=== PATIENT | male | born 1940 | race Caucasian/White ===

== ENCOUNTER 2017-01-13 07:57 | Outpatient (RCR) | payer MEDICARE, OTHER | END 2017-01-30 13:01 | LOC: OPPGERO 07:57 | DX: F32.9 Major depressive disorder, single episode, unspecified (principal) ==

== ENCOUNTER 2017-01-31 09:00 | Outpatient (RCR) | payer MEDICARE, OTHER | END 2017-02-28 15:37 | LOC: OPPGERO 09:00 | DX: F32.9 Major depressive disorder, single episode, unspecified (principal) ==

== ENCOUNTER → 2017-02-17 | Outpatient (CLI) | payer MEDICARE, OTHER | LOC: RAD 08:23 | DX: N18.9 Chronic kidney disease, unspecified (principal); Z90.5 Acquired absence of kidney ==

== ENCOUNTER → 2017-02-28 | Outpatient (CLI) | payer MEDICARE, OTHER | LOC: RAD 11:40 | DX: M77.31 Calcaneal spur, right foot (principal); I10 Essential (primary) hypertension; M48.02 Spinal stenosis, cervical region ==

== ENCOUNTER 2017-03-04 09:00 | Outpatient (RCR) | payer MEDICARE, OTHER | END 2017-04-02 15:27 | disposition still patient (30) | LOC: OPPGERO 09:00 | DX: F32.9 Major depressive disorder, single episode, unspecified (principal) ==

== ENCOUNTER → 2017-03-14 | Outpatient (CLI) | payer MEDICARE, OTHER ==
[2017-03-14 10:10] LABS: BASO # 0.1 (0.02-0.10); EOS # 0.3 (0.04-0.40); HEMATOCRIT 45.2 % (42.0-52.0); HEMOGLOBIN 14.4 g/dL (13.5-18.0); LYMPH# 2.3 (1.50-4.00); MEAN CELL VOLUME 96 fl (78-100); MEAN CORPUSCULAR HEMOGLOBIN 31 pg (27-31); MEAN CORPUSCULAR HGB CONC 32 g/dL (33-37); MEAN PLATELET VOLUME 9.2 fl (7.4-10.4); MONO # 0.6 (0.20-0.80); NEU # 6.7 (1.40-6.50); PLATELET COUNT 273 K/mm3 (130-400); RED BLOOD COUNT 4.71 M/mm3 (4.20-5.60); RED CELL DISTRIBUTION WIDTH 13.6 % (11.5-14.5); WHITE BLOOD COUNT 9.9 K/mm3 (4.8-10.8)
[2017-03-14 10:36] LABS: BUN/CREATININE RATIO 11.3 (6.0-26.0); CALCIUM 9.3 mg/dL (8.4-10.2); POTASSIUM 4.4 mmol/L (3.6-5.0)
[2017-03-14 11:06] LABS: URINE APPEARANCE CLEAR; URINE BILIRUBIN NEGATIVE (NEGATIVE); URINE BLOOD NEGATIVE (NEGATIVE); URINE COLOR YELLOW; URINE GLUCOSE NEGATIVE (NEGATIVE); URINE KETONE NEGATIVE (NEGATIVE); URINE LEUKOCYTE ESTERASE NEGATIVE (NEGATIVE); URINE NITRATE NEGATIVE (NEGATIVE); URINE PROTEIN(semi-quant) NEGATIVE (NEGATIVE); URINE UROBILINOGEN NORMAL (NORMAL); URINE WBC 0-1 /hpf (0-3)
== END ==
LOC: LAB 09:42
PROVIDERS: Internal Medicine
DX: N18.9 Chronic kidney disease, unspecified (principal); I15.9 Secondary hypertension, unspecified; C65.1 Malignant neoplasm of right renal pelvis

== ENCOUNTER 2017-04-03 11:10 | Outpatient (RCR) | payer MEDICARE, OTHER | END 2017-04-30 14:20 | LOC: OPPGERO 11:10 | DX: F32.9 Major depressive disorder, single episode, unspecified (principal); F41.1 Generalized anxiety disorder; N18.3 Chronic kidney disease, stage 3 (moderate); Z88.2 Allergy status to sulfonamides; Z98.890 Other specified postprocedural states; Z85.528 Personal history of other malignant neoplasm of kidney; Z90.5 Acquired absence of kidney ==

== ENCOUNTER 2017-05-01 10:30 | Outpatient (RCR) | payer MEDICARE, OTHER | END 2017-05-30 11:21 | LOC: OPPGERO 10:30 | DX: F32.9 Major depressive disorder, single episode, unspecified (principal); F41.1 Generalized anxiety disorder; G31.89 Other specified degenerative diseases of nervous system; Z85.520 Personal history of malignant carcinoid tumor of kidney; Z98.890 Other specified postprocedural states ==

== ENCOUNTER 2017-06-02 09:34 | Outpatient (RCR) | payer MEDICARE, OTHER ==
[2017-06-22] MEDS ORDERED: CLONAZEPAM1 M1 PO (09:46)
[2017-06-22] MEDS ORDERED: FINASTERIDE5 M1 PO (09:46)
[2017-06-22] MEDS ORDERED: AMLODIPINE BESY10 MG PO (09:47)
[2017-06-22] MEDS ORDERED: LAMOTRIGINE150 MG PO (09:48)
[2017-06-22] MEDS ORDERED: DULOXETINE60 MG PO (09:48)
[2017-06-22] MEDS ORDERED: FLUTICASON0.05 MG/Ac NS (09:49)
[2017-06-22] MEDS ORDERED: VITAMIN D31000 I1 PO (09:49)
[2017-06-22] MEDS ORDERED: LEADER MELATONIN5 MG PO (09:50)
[2017-06-22] MEDS ORDERED: BENADRYL ALLERG25 M1 PO (09:51)
== END 2017-06-30 13:17 ==
LOC: OPPGERO 09:34
DX: F32.9 Major depressive disorder, single episode, unspecified (principal); F41.1 Generalized anxiety disorder; N18.3 Chronic kidney disease, stage 3 (moderate); Z85.528 Personal history of other malignant neoplasm of kidney; Z90.5 Acquired absence of kidney; Z88.2 Allergy status to sulfonamides

== ENCOUNTER 2017-06-22 09:37 | Emergency (ER) | payer MEDICARE, OTHER ==
[2017-06-22] MEDS ORDERED: CLONAZEPAM1 M1 PO (09:46)
[2017-06-22] MEDS ORDERED: FINASTERIDE5 M1 PO (09:46)
[2017-06-22] MEDS ORDERED: AMLODIPINE BESY10 MG PO (09:47)
[2017-06-22] MEDS ORDERED: DULOXETINE60 MG PO (09:48)
[2017-06-22] MEDS ORDERED: LAMOTRIGINE150 MG PO (09:48)
[2017-06-22] MEDS ORDERED: VITAMIN D31000 I1 PO (09:49)
[2017-06-22] MEDS ORDERED: FLUTICASON0.05 MG/Ac NS (09:49)
[2017-06-22] MEDS ORDERED: LEADER MELATONIN5 MG PO (09:50)
[2017-06-22] MEDS ORDERED: BENADRYL ALLERG25 M1 PO (09:51)
[2017-06-22 10:14] LABS: BASO # 0.1 (0.02-0.10); EOS # 0.2 (0.04-0.40); HEMATOCRIT 44.6 % (42.0-52.0); HEMOGLOBIN 14.4 g/dL (13.5-18.0); LYMPH# 1.7 (1.50-4.00); MEAN CELL VOLUME 93 fl (78-100); MEAN CORPUSCULAR HEMOGLOBIN 30 pg (27-31); MEAN CORPUSCULAR HGB CONC 32 g/dL (33-37); MONO # 0.5 (0.20-0.80); NEU # 5.1 (1.40-6.50); PLATELET COUNT 240 K/mm3 (130-400); RED BLOOD COUNT 4.78 M/mm3 (4.20-5.60); WHITE BLOOD COUNT 7.7 K/mm3 (4.8-10.8)
[2017-06-22 10:26] LABS: ALBUMIN 4.3 g/dL (3.5-5.0); CALCIUM 9.5 mg/dL (8.4-10.2); TOTAL BILIRUBIN 0.9 mg/dL (0.2-1.3); TOTAL PROTEIN 8.3 g/dL (6.3-8.2)
[2017-06-22 10:28] LABS: URINE APPEARANCE CLEAR; URINE BILIRUBIN NEGATIVE (NEGATIVE); URINE BLOOD NEGATIVE (NEGATIVE); URINE COLOR YELLOW; URINE GLUCOSE NEGATIVE (NEGATIVE); URINE KETONE NEGATIVE (NEGATIVE); URINE LEUKOCYTE ESTERASE NEGATIVE (NEGATIVE); URINE NITRATE NEGATIVE (NEGATIVE); URINE PROTEIN(semi-quant) TRACE mg/dL (NEGATIVE); URINE UROBILINOGEN NORMAL (NORMAL); URINE WBC 0-1 /hpf (0-3)
[2017-06-22 11:50] VITALS: BP 132/64
== END 2017-06-22 12:02 | disposition home or self-care (01) ==
LOC: ED 09:37
PROVIDERS: Family Medicine
DX: I95.1 Orthostatic hypotension (principal); M47.812 Spondylosis without myelopathy or radiculopathy, cervical region; M47.816 Spondylosis without myelopathy or radiculopathy, lumbar region; Z85.528 Personal history of other malignant neoplasm of kidney; Z90.5 Acquired absence of kidney; N28.9 Disorder of kidney and ureter, unspecified; N40.1 Benign prostatic hyperplasia with lower urinary tract symptoms; N13.8 Other obstructive and reflux uropathy; W18.30XA Fall on same level, unspecified, initial encounter; Z91.81 History of falling; Y92.009 Unspecified place in unspecified non-institutional (private) residence as the place of occurrence of the external cause; M25.571 Pain in right ankle and joints of right foot

== ENCOUNTER → 2017-06-25 | Outpatient (CLI) | payer MEDICARE, OTHER ==
[2017-06-22 11:50] VITALS: BP 132/64
[~2017-06-25] MED LIST: AMLODIPINE BESY10 MG PO; BENADRYL ALLERG25 M1 PO; CLONAZEPAM1 M1 PO; DULOXETINE60 MG PO; FINASTERIDE5 M1 PO; FLUTICASON0.05 MG/Ac NS; LAMOTRIGINE150 MG PO; LEADER MELATONIN5 MG PO; VITAMIN D31000 I1 PO
== END ==
LOC: RAD 14:36
DX: G31.1 Senile degeneration of brain, not elsewhere classified (principal); J32.0 Chronic maxillary sinusitis; J32.1 Chronic frontal sinusitis; R53.1 Weakness; Z88.2 Allergy status to sulfonamides; Z88.5 Allergy status to narcotic agent

== ENCOUNTER → 2017-06-30 | Outpatient (CLI) | payer MEDICARE, OTHER ==
[2017-06-22 11:50] VITALS: BP 132/64
== END ==
LOC: RAD 11:56
DX: M48.07 Spinal stenosis, lumbosacral region (principal); R53.1 Weakness; Z88.5 Allergy status to narcotic agent; Z88.2 Allergy status to sulfonamides; Z98.890 Other specified postprocedural states

== ENCOUNTER 2017-07-01 09:09 | Outpatient (RCR) | payer MEDICARE, OTHER | END 2017-07-31 13:44 | LOC: OPPGERO 09:09 | DX: F32.9 Major depressive disorder, single episode, unspecified (principal); F41.1 Generalized anxiety disorder; N18.3 Chronic kidney disease, stage 3 (moderate); Z85.528 Personal history of other malignant neoplasm of kidney; Z90.5 Acquired absence of kidney; Z79.899 Other long term (current) drug therapy ==

== ENCOUNTER → 2017-07-02 | Outpatient (CLI) | payer MEDICARE, OTHER ==
[2017-06-22 11:50] VITALS: BP 132/64
== END ==
LOC: RAD 12:43
DX: R55 Syncope and collapse (principal); M48.02 Spinal stenosis, cervical region; M67.979 Unspecified disorder of synovium and tendon, unspecified ankle and foot; Z88.5 Allergy status to narcotic agent; Z88.2 Allergy status to sulfonamides

== ENCOUNTER → 2017-07-08 | Outpatient (CLI) | payer MEDICARE, OTHER ==
[2017-06-22 11:50] VITALS: BP 132/64
[2017-07-08 09:35] LABS: EOS # 0.2 (0.04-0.40); HEMATOCRIT 40.3 % (42.0-52.0); HEMOGLOBIN 12.5 g/dL (13.5-18.0); LYMPH# 1.3 (1.50-4.00); MEAN CELL VOLUME 94 fl (78-100); MEAN CORPUSCULAR HEMOGLOBIN 29 pg (27-31); MEAN CORPUSCULAR HGB CONC 31 g/dL (33-37); MEAN PLATELET VOLUME 8.8 fl (7.4-10.4); MONO # 0.4 (0.20-0.80); NEU # 3.9 (1.40-6.50); PLATELET COUNT 224 K/mm3 (130-400); RED CELL DISTRIBUTION WIDTH 12.9 % (11.5-14.5); WHITE BLOOD COUNT 5.8 K/mm3 (4.8-10.8)
[2017-07-08 09:52] LABS: BUN/CREATININE RATIO 11.8 (6.0-26.0); CALCIUM 8.9 mg/dL (8.4-10.2); POTASSIUM 4.5 mmol/L (3.6-5.0)
== END ==
LOC: LAB 09:11
PROVIDERS: Internal Medicine
DX: N18.3 Chronic kidney disease, stage 3 (moderate) (principal)

== ENCOUNTER 2017-08-01 10:44 | Outpatient (RCR) | payer MEDICARE, OTHER ==
[2017-08-12] MEDS ORDERED: TYLENOL 325MG325 MG PO (09:58)
[2017-08-12] MEDS ORDERED: OXYCODONE HCL A1 TAB PO (10:11)
[2017-08-12] MEDS ORDERED: PRAMIPEXOLE D0.25 MG PO (10:12)
[2017-08-12] MEDS ORDERED: GOOD NEIGHBOR P1 T33 PO (10:12)
== END 2017-08-29 13:08 ==
LOC: OPPGERO 10:44
DX: F32.9 Major depressive disorder, single episode, unspecified (principal); F41.1 Generalized anxiety disorder; N18.3 Chronic kidney disease, stage 3 (moderate); Z85.528 Personal history of other malignant neoplasm of kidney; Z90.5 Acquired absence of kidney; Z79.899 Other long term (current) drug therapy; Z63.79 Other stressful life events affecting family and household

== ENCOUNTER → 2017-08-12 | Outpatient (CLI) | payer MEDICARE, OTHER ==
[~2017-08-12] VITALS: Ht 177.8 cm; Wt 97.7 kg
[~2017-08-12] MED LIST changes: +GOOD NEIGHBOR P1 T33 PO; +OXYCODONE HCL A1 TAB PO; +PRAMIPEXOLE D0.25 MG PO; +TYLENOL 325MG325 MG PO
[2017-08-12 09:22] VITALS: BP 137/72
[2017-08-12 09:35] VITALS: BP 137/72
[2017-08-12 11:20] VITALS: BP 138/84
[2017-08-12 23:44] LABS: FOLLICLE STIMULATING HORMONE 14.2 mIU/mL (1.0-12.0); LUTENIZING HORMONE 7.3 mIU/mL (0.6-12.1); PROLACTIN 7.3 ng/mL (3.5-19.4); TESTOSTERONE 292 ng/dL (221-716)
== END ==
LOC: LAB 08:59
PROVIDERS: Family Medicine
DX: M48.02 Spinal stenosis, cervical region (principal); E23.6 Other disorders of pituitary gland
CPT/HCPCS: J0834

== ENCOUNTER 2017-09-01 09:49 | Outpatient (RCR) | payer MEDICARE, OTHER ==
[2017-08-12 11:20] VITALS: BP 138/84
== END 2017-09-30 14:20 ==
LOC: OPPGERO 09:49
DX: F32.9 Major depressive disorder, single episode, unspecified (principal); F41.1 Generalized anxiety disorder; Z63.79 Other stressful life events affecting family and household; Z79.899 Other long term (current) drug therapy; Z85.528 Personal history of other malignant neoplasm of kidney; Z90.5 Acquired absence of kidney

== ENCOUNTER → 2017-09-17 | Outpatient (CLI) | payer MEDICARE, OTHER ==
[2017-08-12 11:20] VITALS: BP 138/84
[2017-09-17 18:40] LABS: BUN/CREATININE RATIO 14.8 (6.0-26.0); CALCIUM 8.4 mg/dL (8.4-10.2); POTASSIUM 4.6 mmol/L (3.6-5.0)
== END ==
LOC: LAB 18:05
PROVIDERS: Family Medicine
DX: N18.3 Chronic kidney disease, stage 3 (moderate) (principal); M10.9 Gout, unspecified; I10 Essential (primary) hypertension

== ENCOUNTER → 2017-09-18 | Outpatient (CLI) | payer MEDICARE, OTHER ==
[2017-08-12 11:20] VITALS: BP 138/84
== END ==
LOC: RAD 09:43
DX: M19.071 Primary osteoarthritis, right ankle and foot (principal)

== ENCOUNTER 2017-10-01 09:40 | Outpatient (RCR) | payer MEDICARE, OTHER ==
[2017-08-12 11:20] VITALS: BP 138/84
== END 2017-10-31 13:42 ==
LOC: OPPGERO 09:40
DX: F32.9 Major depressive disorder, single episode, unspecified (principal); F41.1 Generalized anxiety disorder; Z85.528 Personal history of other malignant neoplasm of kidney; Z90.5 Acquired absence of kidney; Z79.899 Other long term (current) drug therapy

== ENCOUNTER 2017-11-04 09:30 | Outpatient (RCR) | payer MEDICARE, OTHER ==
[2017-08-12 11:20] VITALS: BP 138/84
== END 2017-11-28 14:03 ==
LOC: OPPGERO 09:30
DX: F32.9 Major depressive disorder, single episode, unspecified (principal); F41.1 Generalized anxiety disorder; Z79.899 Other long term (current) drug therapy

== ENCOUNTER → 2017-11-04 | Outpatient (CLI) | payer MEDICARE, OTHER ==
[2017-08-12 11:20] VITALS: BP 138/84
[2017-11-04 10:33] LABS: HEMATOCRIT 44.2 % (42.0-52.0); HEMOGLOBIN 13.8 g/dL (13.5-18.0); MEAN PLATELET VOLUME 9.1 fl (7.4-10.4); RED BLOOD COUNT 4.78 M/mm3 (4.20-5.60); RED CELL DISTRIBUTION WIDTH 14.3 % (11.5-14.5); WHITE BLOOD COUNT 6.9 K/mm3 (4.8-10.8)
[2017-11-04 10:57] LABS: CALCIUM 8.6 mg/dL (8.4-10.2); POTASSIUM 4.2 mmol/L (3.6-5.0)
== END ==
LOC: LAB 10:07
PROVIDERS: Internal Medicine
DX: I12.9 Hypertensive chronic kidney disease with stage 1 through stage 4 chronic kidney disease, or unspecified chronic kidney disease (principal); N18.9 Chronic kidney disease, unspecified; E66.8 Other obesity; Z91.81 History of falling

== ENCOUNTER → 2017-11-05 | Outpatient (CLI) | payer MEDICARE, OTHER ==
[2017-08-12 11:20] VITALS: BP 138/84
[2017-11-06 00:10] LABS: CREATININE OTHER SOURCE 43 mg/dL (())
== END ==
LOC: LAB 09:54
PROVIDERS: Family Medicine
DX: I12.9 Hypertensive chronic kidney disease with stage 1 through stage 4 chronic kidney disease, or unspecified chronic kidney disease (principal); N18.9 Chronic kidney disease, unspecified; E66.8 Other obesity; Z91.81 History of falling

== ENCOUNTER 2017-12-01 09:40 | Outpatient (RCR) | payer MEDICARE, OTHER ==
[2017-08-12 11:20] VITALS: BP 138/84
== END 2017-12-31 14:19 ==
LOC: OPPGERO 09:40
DX: F32.9 Major depressive disorder, single episode, unspecified (principal); F41.1 Generalized anxiety disorder; N18.3 Chronic kidney disease, stage 3 (moderate); Z85.528 Personal history of other malignant neoplasm of kidney; Z90.5 Acquired absence of kidney; Z98.890 Other specified postprocedural states; Z79.899 Other long term (current) drug therapy

== ENCOUNTER 2018-01-01 10:01 | Outpatient (RCR) | payer MEDICARE, OTHER ==
[2017-08-12 11:20] VITALS: BP 138/84
== END 2018-01-30 15:19 ==
LOC: OPPGERO 10:01
DX: F32.9 Major depressive disorder, single episode, unspecified (principal); F41.1 Generalized anxiety disorder; Z63.79 Other stressful life events affecting family and household; M53.80 Other specified dorsopathies, site unspecified; N18.3 Chronic kidney disease, stage 3 (moderate); Z85.528 Personal history of other malignant neoplasm of kidney; Z90.5 Acquired absence of kidney; Z98.890 Other specified postprocedural states; Z79.899 Other long term (current) drug therapy

== ENCOUNTER 2018-02-02 09:10 | Outpatient (RCR) | payer MEDICARE, OTHER ==
[2017-08-12 11:20] VITALS: BP 138/84
== END 2018-03-02 12:39 ==
LOC: OPPGERO 09:10
DX: F32.9 Major depressive disorder, single episode, unspecified (principal); F41.1 Generalized anxiety disorder; N18.3 Chronic kidney disease, stage 3 (moderate); Z60.0 Problems of adjustment to life-cycle transitions; M53.80 Other specified dorsopathies, site unspecified; Z98.890 Other specified postprocedural states; Z85.528 Personal history of other malignant neoplasm of kidney; Z90.5 Acquired absence of kidney; Z79.899 Other long term (current) drug therapy

== ENCOUNTER 2018-03-04 10:09 | Outpatient (RCR) | payer MEDICARE, OTHER ==
[2017-08-12 11:20] VITALS: BP 138/84
== END 2018-04-02 13:35 ==
LOC: OPPGERO 10:09
DX: F32.9 Major depressive disorder, single episode, unspecified (principal); F41.1 Generalized anxiety disorder; N18.3 Chronic kidney disease, stage 3 (moderate); M53.9 Dorsopathy, unspecified; Z85.528 Personal history of other malignant neoplasm of kidney; Z90.5 Acquired absence of kidney; Z79.899 Other long term (current) drug therapy

== ENCOUNTER → 2018-03-05 | Outpatient (CLI) | payer MEDICARE, OTHER ==
[2017-08-12 11:20] VITALS: BP 138/84
[2018-03-05 10:03] LABS: EOS # 0.3 (0.04-0.40); EOS % 3.9 % (0.0-4.0); HEMATOCRIT 42.8 % (42.0-52.0); HEMOGLOBIN 13.8 g/dL (13.5-18.0); LYMPH# 1.6 (1.50-4.00); MEAN CELL VOLUME 94 fl (78-100); MEAN CORPUSCULAR HEMOGLOBIN 30 pg (27-31); MEAN CORPUSCULAR HGB CONC 32 g/dL (33-37); MEAN PLATELET VOLUME 8.9 fl (7.4-10.4); MONO # 0.5 (0.20-0.80); NEU # 4.5 (1.40-6.50); PLATELET COUNT 209 K/mm3 (130-400); RED BLOOD COUNT 4.54 M/mm3 (4.20-5.60); RED CELL DISTRIBUTION WIDTH 13.9 % (11.5-14.5); WHITE BLOOD COUNT 6.9 K/mm3 (4.8-10.8)
[2018-03-05 10:14] LABS: CALCIUM 9.2 mg/dL (8.4-10.2); POTASSIUM 4.1 mmol/L (3.6-5.0)
== END ==
LOC: LAB 09:03
PROVIDERS: Internal Medicine
DX: I12.9 Hypertensive chronic kidney disease with stage 1 through stage 4 chronic kidney disease, or unspecified chronic kidney disease (principal); N18.3 Chronic kidney disease, stage 3 (moderate); N25.81 Secondary hyperparathyroidism of renal origin

== ENCOUNTER → 2018-03-18 | Outpatient (CLI) | payer MEDICARE, OTHER ==
[2017-08-12 11:20] VITALS: BP 138/84
[2018-03-18 13:07] LABS: EOS # 0.2 (0.04-0.40); EOS % 2.8 % (0.0-4.0); HEMATOCRIT 40.9 % (42.0-52.0); MEAN CELL VOLUME 96 fl (78-100); MEAN CORPUSCULAR HEMOGLOBIN 31 pg (27-31); MEAN CORPUSCULAR HGB CONC 32 g/dL (33-37); MEAN PLATELET VOLUME 8.8 fl (7.4-10.4); MONO # 0.8 (0.20-0.80); NEU # 5.1 (1.40-6.50); PLATELET COUNT 178 K/mm3 (130-400); RED BLOOD COUNT 4.26 M/mm3 (4.20-5.60); WHITE BLOOD COUNT 8.2 K/mm3 (4.8-10.8)
== END ==
LOC: LAB 12:55 → RAD 12:55
PROVIDERS: Family Medicine
DX: J40 Bronchitis, not specified as acute or chronic (principal)

== ENCOUNTER 2018-04-03 09:06 | Outpatient (RCR) | payer MEDICARE, OTHER ==
[2017-08-12 11:20] VITALS: BP 138/84
== END 2018-04-30 13:47 ==
LOC: OPPGERO 09:06
DX: F32.9 Major depressive disorder, single episode, unspecified (principal); F41.1 Generalized anxiety disorder; M53.9 Dorsopathy, unspecified; N18.3 Chronic kidney disease, stage 3 (moderate); Z85.528 Personal history of other malignant neoplasm of kidney; Z90.5 Acquired absence of kidney; Z60.0 Problems of adjustment to life-cycle transitions; Z79.899 Other long term (current) drug therapy

== ENCOUNTER 2018-05-01 14:23 | Outpatient (RCR) | payer MEDICARE, OTHER ==
[2017-08-12 11:20] VITALS: BP 138/84
== END 2018-05-29 15:24 ==
LOC: OPPGERO 14:23
DX: F32.9 Major depressive disorder, single episode, unspecified (principal); F41.1 Generalized anxiety disorder; N18.3 Chronic kidney disease, stage 3 (moderate); Z85.528 Personal history of other malignant neoplasm of kidney

== ENCOUNTER → 2018-05-12 | Outpatient (CLI) | payer MEDICARE, OTHER ==
[2017-08-12 11:20] VITALS: BP 138/84
== END ==
LOC: RAD 09:34
DX: G25.81 Restless legs syndrome (principal); M48.02 Spinal stenosis, cervical region; F06.4 Anxiety disorder due to known physiological condition; M46.94 Unspecified inflammatory spondylopathy, thoracic region; M48.04 Spinal stenosis, thoracic region; K80.20 Calculus of gallbladder without cholecystitis without obstruction; M18.11 Unilateral primary osteoarthritis of first carpometacarpal joint, right hand

== ENCOUNTER → 2018-05-18 | Outpatient (CLI) | payer MEDICARE, OTHER ==
[2017-08-12 11:20] VITALS: BP 138/84
== END ==
LOC: RAD 09:39
DX: M47.812 Spondylosis without myelopathy or radiculopathy, cervical region (principal); M48.02 Spinal stenosis, cervical region; Z98.1 Arthrodesis status

== ENCOUNTER 2018-06-01 09:41 | Outpatient (RCR) | payer MEDICARE, OTHER ==
[2017-08-12 11:20] VITALS: BP 138/84
== END 2018-06-30 14:40 ==
LOC: OPPGERO 09:41
DX: F32.9 Major depressive disorder, single episode, unspecified (principal); F41.8 Other specified anxiety disorders; N18.3 Chronic kidney disease, stage 3 (moderate); Z85.528 Personal history of other malignant neoplasm of kidney

== ENCOUNTER 2018-07-01 08:55 | Outpatient (RCR) | payer MEDICARE, OTHER ==
[2017-08-12 11:20] VITALS: BP 138/84
== END 2018-07-31 13:34 ==
LOC: OPPGERO 08:55
DX: F32.9 Major depressive disorder, single episode, unspecified (principal); F41.1 Generalized anxiety disorder; N18.3 Chronic kidney disease, stage 3 (moderate)

== ENCOUNTER → 2018-07-06 | Outpatient (CLI) | payer MEDICARE, OTHER ==
[2017-08-12 11:20] VITALS: BP 138/84
[2018-07-06 17:10] LABS: HEMATOCRIT 39.8 % (42.0-52.0); HEMOGLOBIN 12.3 g/dL (13.5-18.0); MEAN PLATELET VOLUME 9.6 fl (7.4-10.4); RED BLOOD COUNT 4.2 M/mm3 (4.20-5.60); RED CELL DISTRIBUTION WIDTH 13.5 % (11.5-14.5); WHITE BLOOD COUNT 7.4 K/mm3 (4.8-10.8)
[2018-07-06 17:15] LABS: CALCIUM 8.9 mg/dL (8.4-10.2); POTASSIUM 4.6 mmol/L (3.6-5.0)
== END ==
LOC: LAB 14:28
PROVIDERS: Internal Medicine
DX: I12.9 Hypertensive chronic kidney disease with stage 1 through stage 4 chronic kidney disease, or unspecified chronic kidney disease (principal); N18.3 Chronic kidney disease, stage 3 (moderate); N25.81 Secondary hyperparathyroidism of renal origin

== ENCOUNTER → 2018-11-19 | Outpatient (CLI) | payer MEDICARE, OTHER ==
[2017-08-12 11:20] VITALS: BP 138/84
[2018-11-19 10:37] LABS: HEMATOCRIT 42.9 % (42.0-52.0); HEMOGLOBIN 13.8 g/dL (13.5-18.0); MEAN PLATELET VOLUME 8.8 fl (7.4-10.4); RED BLOOD COUNT 4.56 M/mm3 (4.20-5.60); RED CELL DISTRIBUTION WIDTH 13.6 % (11.5-14.5); WHITE BLOOD COUNT 7.7 K/mm3 (4.8-10.8)
[2018-11-19 10:41] LABS: POTASSIUM 4.7 mmol/L (3.5-5.1)
== END ==
LOC: LAB 10:03
PROVIDERS: Internal Medicine Nephrology
DX: I12.9 Hypertensive chronic kidney disease with stage 1 through stage 4 chronic kidney disease, or unspecified chronic kidney disease (principal); N18.3 Chronic kidney disease, stage 3 (moderate); N25.81 Secondary hyperparathyroidism of renal origin

== ENCOUNTER → 2018-12-11 | Outpatient (CLI) | payer MEDICARE, OTHER ==
[2017-08-12 11:20] VITALS: BP 138/84
== END ==
LOC: LAB 11:42
DX: K14.6 Glossodynia (principal); R10.13 Epigastric pain

== ENCOUNTER → 2018-12-31 | Day surgery (SDC) | payer MEDICARE, OTHER ==
[2017-08-12 11:20] VITALS: BP 138/84
[~2018-12-31] MED LIST changes: +FLUOXETINE HCL20 MG PO; +KLONOPIN 0.5MG0.5 MG PO; +LAMOTRIGINE200 MG PO; +NORVASC 10MG10 MG PO; +PANTOPRAZOLE SO20 M1 PO
== END ==
LOC: MSO 07:29
DX: K29.70 Gastritis, unspecified, without bleeding (principal); I10 Essential (primary) hypertension; E78.00 Pure hypercholesterolemia, unspecified; F41.9 Anxiety disorder, unspecified; N18.9 Chronic kidney disease, unspecified; M79.7 Fibromyalgia; Z85.528 Personal history of other malignant neoplasm of kidney; Z90.5 Acquired absence of kidney; Z88.2 Allergy status to sulfonamides; Z87.11 Personal history of peptic ulcer disease; Z88.6 Allergy status to analgesic agent
CPT/HCPCS: 00731; J2704; J7120

== ENCOUNTER → 2019-01-01 | Outpatient (CLI) | payer MEDICARE, OTHER ==
[~2019-01-01] VITALS: Ht 177.8 cm; Wt 97.7 kg
[2019-01-01 12:08] VITALS: BP 128/68
== END ==
LOC: AMSURD 11:54
DX: I49.9 Cardiac arrhythmia, unspecified (principal); I10 Essential (primary) hypertension; K29.50 Unspecified chronic gastritis without bleeding

== ENCOUNTER → 2019-01-14 | Outpatient (CLI) | payer MEDICARE, OTHER ==
[2019-01-01 12:08] VITALS: BP 128/68
== END ==
LOC: RAD 08:52
DX: K76.89 Other specified diseases of liver (principal); K29.50 Unspecified chronic gastritis without bleeding; Z90.5 Acquired absence of kidney

== ENCOUNTER → 2019-01-27 | Outpatient (CLI) | payer MEDICARE, OTHER ==
[2019-01-01 12:08] VITALS: BP 128/68
[2019-01-27 09:42] LABS: EOS # 0.3 (0.04-0.40); EOS % 3.5 % (0.0-4.0); HEMATOCRIT 43.6 % (42.0-52.0); HEMOGLOBIN 13.7 g/dL (13.5-18.0); LYMPH# 1.7 (1.50-4.00); MEAN CELL VOLUME 94 fl (78-100); MEAN CORPUSCULAR HEMOGLOBIN 29 pg (27-31); MEAN CORPUSCULAR HGB CONC 31 g/dL (33-37); MEAN PLATELET VOLUME 9.3 fl (7.4-10.4); MONO # 0.5 (0.20-0.80); NEU # 4.7 (1.40-6.50); PLATELET COUNT 192 K/mm3 (130-400); RED BLOOD COUNT 4.66 M/mm3 (4.20-5.60); RED CELL DISTRIBUTION WIDTH 13.3 % (11.5-14.5); WHITE BLOOD COUNT 7.2 K/mm3 (4.8-10.8)
[2019-01-27 09:53] LABS: ALBUMIN 3.9 g/dL (3.4-4.8); POTASSIUM 4.2 mmol/L (3.5-5.1)
[2019-01-27 09:54] LABS: CALCIUM 8.9 mg/dL (8.3-10.5)
[2019-01-27 09:55] LABS: TOTAL PROTEIN 6.9 g/dL (6.2-8.1)
[2019-01-27 09:57] LABS: TOTAL BILIRUBIN 1.3 mg/dL (0.2-1.2)
== END ==
LOC: LAB 09:32
PROVIDERS: Internal Medicine Gastroenterology
DX: K76.89 Other specified diseases of liver (principal); N18.9 Chronic kidney disease, unspecified; Z90.5 Acquired absence of kidney

== ENCOUNTER → 2019-04-08 | Outpatient (CLI) | payer MEDICARE, OTHER ==
[2019-01-01 12:08] VITALS: BP 128/68
[2019-04-08 13:46] LABS: ALBUMIN 4.1 g/dL (3.4-4.8)
[2019-04-08 13:47] LABS: CALCIUM 8.6 mg/dL (8.3-10.5)
[2019-04-08 13:49] LABS: TOTAL PROTEIN 7.6 g/dL (6.2-8.1)
[2019-04-08 14:19] LABS: HEMATOCRIT 45.4 % (42.0-52.0); HEMOGLOBIN 14.4 g/dL (13.5-18.0); MEAN PLATELET VOLUME 9.6 fl (7.4-10.4); RED BLOOD COUNT 4.88 M/mm3 (4.20-5.60); RED CELL DISTRIBUTION WIDTH 13.6 % (11.5-14.5)
== END ==
LOC: LAB 13:08
PROVIDERS: Surgery
DX: Z01.818 Encounter for other preprocedural examination (principal)

== ENCOUNTER → 2019-04-09 | Outpatient (CLI) | payer MEDICARE, OTHER ==
[2019-01-01 12:08] VITALS: BP 128/68
== END ==
LOC: RAD 11:52
DX: K80.65 Calculus of gallbladder and bile duct with chronic cholecystitis with obstruction (principal); I48.91 Unspecified atrial fibrillation; I12.9 Hypertensive chronic kidney disease with stage 1 through stage 4 chronic kidney disease, or unspecified chronic kidney disease; N18.3 Chronic kidney disease, stage 3 (moderate); F06.4 Anxiety disorder due to known physiological condition; G25.81 Restless legs syndrome

== ENCOUNTER → 2019-05-17 | Outpatient (CLI) | payer MEDICARE, OTHER ==
[2019-01-01 12:08] VITALS: BP 128/68
[2019-05-17 10:04] LABS: POTASSIUM 4.3 mmol/L (3.5-5.1)
[2019-05-17 10:06] LABS: CALCIUM 8.9 mg/dL (8.3-10.5)
== END ==
LOC: LAB 09:42
PROVIDERS: Nurse Practitioner
DX: I12.9 Hypertensive chronic kidney disease with stage 1 through stage 4 chronic kidney disease, or unspecified chronic kidney disease (principal); N18.3 Chronic kidney disease, stage 3 (moderate); N25.81 Secondary hyperparathyroidism of renal origin

== ENCOUNTER → 2019-11-18 | Outpatient (CLI) | payer MEDICARE, OTHER ==
[2019-01-01 12:08] VITALS: BP 128/68
[2019-11-18 09:24] LABS: POTASSIUM 4.5 mmol/L (3.5-5.1)
[2019-11-18 09:25] LABS: CALCIUM 8.7 mg/dL (8.3-10.5)
== END ==
LOC: LAB 08:56
PROVIDERS: Family Medicine
DX: I12.9 Hypertensive chronic kidney disease with stage 1 through stage 4 chronic kidney disease, or unspecified chronic kidney disease (principal); N18.3 Chronic kidney disease, stage 3 (moderate); N25.81 Secondary hyperparathyroidism of renal origin

== ENCOUNTER → 2020-06-08 | Outpatient (CLI) | payer MEDICARE, OTHER ==
[2019-01-01 12:08] VITALS: BP 128/68
== END ==
LOC: RAD 11:00
DX: M16.0 Bilateral primary osteoarthritis of hip (principal); Z98.1 Arthrodesis status

== ENCOUNTER → 2020-08-17 | Outpatient (CLI) | payer MEDICARE, OTHER ==
[2020-08-17 09:22] LABS: POTASSIUM 4.6 mmol/L (3.5-5.1)
[2020-08-17 09:23] LABS: ALBUMIN 3.8 g/dL (3.4-4.8)
[2020-08-17 09:24] LABS: CALCIUM 8.7 mg/dL (8.3-10.5)
[2020-08-17 09:27] LABS: TOTAL BILIRUBIN 1.3 mg/dL (0.2-1.2)
[2020-08-17 09:32] LABS: MAGNESIUM 1.93 mg/dL (1.60-2.60)
== END ==
LOC: LAB 08:54
PROVIDERS: Family Medicine
DX: I12.9 Hypertensive chronic kidney disease with stage 1 through stage 4 chronic kidney disease, or unspecified chronic kidney disease (principal); I70.90 Unspecified atherosclerosis; R25.2 Cramp and spasm; N18.30 Chronic kidney disease, stage 3 unspecified

== ENCOUNTER → 2021-08-16 | Outpatient (CLI) | payer MEDICARE ==
[2021-08-16 09:44] LABS: ALBUMIN 3.9 g/dL (3.4-4.8)
[2021-08-16 09:45] LABS: POTASSIUM 4.4 mmol/L (3.5-5.1)
[2021-08-16 09:46] LABS: CALCIUM 9.2 mg/dL (8.3-10.5)
== END ==
LOC: LAB 09:22
PROVIDERS: Internal Medicine Nephrology
DX: N18.32 Chronic kidney disease, stage 3b (principal); N25.81 Secondary hyperparathyroidism of renal origin

== ENCOUNTER → 2022-03-06 | Outpatient (CLI) | payer MEDICARE ==
[2022-03-06 14:28] LABS: ALBUMIN 3.9 g/dL (3.4-4.8)
[2022-03-06 14:29] LABS: CALCIUM 9.2 mg/dL (8.3-10.5)
[2022-03-06 14:31] LABS: TOTAL PROTEIN 7.3 g/dL (6.2-8.1)
[2022-03-06 14:32] LABS: TOTAL BILIRUBIN 1.1 mg/dL (0.2-1.2)
== END ==
LOC: LAB 13:57
PROVIDERS: Family Medicine
DX: I70.90 Unspecified atherosclerosis (principal); I10 Essential (primary) hypertension; R60.0 Localized edema

== ENCOUNTER → 2022-03-21 | Outpatient (CLI) | payer MEDICARE ==
[2022-03-21 10:58] LABS: POTASSIUM 4.7 mmol/L (3.5-5.1)
[2022-03-21 10:59] LABS: CALCIUM 9.7 mg/dL (8.3-10.5)
== END ==
LOC: LAB 10:33
PROVIDERS: Family Medicine
DX: I70.90 Unspecified atherosclerosis (principal); I12.9 Hypertensive chronic kidney disease with stage 1 through stage 4 chronic kidney disease, or unspecified chronic kidney disease; N18.30 Chronic kidney disease, stage 3 unspecified; R60.0 Localized edema

== ENCOUNTER → 2022-12-31 | Outpatient (CLI) | payer MEDICARE ==
[2022-12-31 10:23] LABS: CALCIUM 9.3 mg/dL (8.3-10.5)
== END ==
LOC: LAB 10:07
PROVIDERS: Internal Medicine Nephrology
DX: N18.32 Chronic kidney disease, stage 3b (principal)

== ENCOUNTER → 2023-04-09 | Outpatient (CLI) | payer MEDICARE ==
[2023-04-09 12:30] LABS: HEMATOCRIT 40.4 % (42.0-52.0); HEMOGLOBIN 12.9 g/dL (13.5-18.0); MEAN PLATELET VOLUME 9.2 fl (7.4-10.4); RED BLOOD COUNT 4.24 M/mm3 (4.20-5.60); RED CELL DISTRIBUTION WIDTH 13.2 % (11.5-14.5); WHITE BLOOD COUNT 6.8 K/mm3 (4.8-10.8)
[2023-04-09 12:39] LABS: CALCIUM 9.2 mg/dL (8.3-10.5)
[2023-04-09 12:40] LABS: TOTAL PROTEIN 6.9 g/dL (6.2-8.1)
[2023-04-09 12:42] LABS: TOTAL BILIRUBIN 0.9 mg/dL (0.2-1.2)
[2023-04-09 12:47] LABS: MAGNESIUM 1.97 mg/dL (1.60-2.60)
== END ==
LOC: LAB 12:20
PROVIDERS: Family Medicine
DX: N18.30 Chronic kidney disease, stage 3 unspecified (principal)

== ENCOUNTER → 2023-04-23 | Outpatient (CLI) | payer MEDICARE ==
[2023-04-23 11:43] LABS: CALCIUM 9.6 mg/dL (8.3-10.5)
== END ==
LOC: LAB 10:31
PROVIDERS: Family Medicine
DX: R60.0 Localized edema (principal)

== ENCOUNTER → 2023-08-08 | Outpatient (CLI) | payer MEDICARE | LOC: RAD 10:26 | DX: M17.0 Bilateral primary osteoarthritis of knee (principal) ==

== ENCOUNTER 2023-11-06 08:00 | Outpatient (RCR) | payer MEDICARE | END 2023-12-01 23:59 | LOC: PT 08:00 | DX: R26.89 Other abnormalities of gait and mobility (principal); R53.1 Weakness ==